=== PATIENT | male | born 1965 | race Two or more races ===

== ENCOUNTER 2019-10-14 08:36 | Emergency (ER) | payer OTHER ==
[~2019-10-14] VITALS: Ht 165.1 cm; Wt 75.3 kg
[2019-10-14] MEDS ORDERED: MEDROLPACK PO (11:59)
== END 2019-10-15 15:06 | disposition home or self-care (01) ==
LOC: ER 08:36
DX: R20.0 Anesthesia of skin (principal); Z20.828 Contact with and (suspected) exposure to other viral communicable diseases